=== PATIENT | male | born 2000 | race Caucasian/White ===

== ENCOUNTER 2025-04-10 13:47 | Emergency (ER) | payer SELFPAY ==
[2025-04-10 13:54] VITALS: BP 120/71; PULSE 92; RESP 20; TEMP 36.4; O2SAT 100
[2025-04-10 14:00] LABS: Glucose Point of Care 107 mg/dL (70-110)
== END 2025-04-10 18:00 | disposition left against medical advice (07) ==
PROVIDERS: Emergency Provider Family Medicine; PCP Nurse Practitioner
DX: Z01.89 Encounter for other specified special examinations (principal); Z53.21 Procedure and treatment not carried out due to patient leaving prior to being seen by health care provider
CPT/HCPCS: 36416; 82962